=== PATIENT | male | born 1980 | race Caucasian/White ===

== ENCOUNTER 2017-05-17 07:15 | Day surgery (SDC) | payer OTHER ==
[~2017-05-17] VITALS: Ht 185.4 cm; Wt 83.9 kg
[2017-05-17] VITALS (14 sets, daily range): BP systolic 123–165; BP diastolic 74–96
--- NOTE | 2017-05-17 07:13 | Pre-Procedure Note/Attestation ---
Pre-Procedure Note/Attestation Complete Prior to Procedure Planned Procedure: left Procedure Narrative: knee arthroscopy, removal left knee hardware Indications for Procedure Pre-Operative Diagnosis: left knee pain hardware, left knee internal derangement Attestation I attest that I discussed the nature of the procedure; its benefits; risks and complications; and alternatives (and the risks and benefits of such alternatives ), prior to the procedure, with the patient (or the patient's legal fundraising sale representative). I attest that, if there was a reasonable possibility of needing a blood transfusion, the patient (or the patient's legal fundraising sale representative) was given the [facility] standardized written summary, pursuant to the [place] Blood Safety Act ([place] Health and Safety Code # 1645, as amended). I attest that I re-evaluated the patient just prior to the surgery and that there has been no change in the patient's H&P, except as documented below: JAIR CAZARES May 17, 2017 07:13
--- NOTE | 2017-05-17 07:14 | Operative Note - PDOC ---
Operative Note Operative Note Pre-op Diagnosis: left knee pain hardware, left knee internal derangement Procedure: left knee arthroscopy, removal hardware Post-op Diagnosis: same as pre-op plus Operative Findings: consistent w/pre-op dx studies Anesthesia: regional Specimen: none Complications: none Condition: stable Estimated Blood Loss: none Implant(s) used?: No JAIR CAZARES May 17, 2017 07:14
[~2017-05-17 07:15] MED LIST: Clindamycin 600mg 50 ML IV ONE; D5 1/2NS 1,000 ML IV SCH; HYDROmorphone 1mg/ml Carpuject SUBQ PRN; NKM; Norco 5mg/325mg tab ORAL PRN; Tylenol #3 tab (300mg/30mg) ORAL PRN; ceFAZolin 1gm in D5W 55ml IVP ONE; celeBREX 200mg Cap **SURGERY PATIENTS ONLY ORAL ONE; oxyCONTIN 20mg tab ORAL ONE
[2017-05-17] MEDS ORDERED: celeBREX 200mg Cap **SURGERY PATIENTS ONLY ORAL ONE (08:21)
[2017-05-17] MEDS ORDERED: Bupivacaine 0.25% Inj 30ml INJ ONE (09:30)
[2017-05-17] MEDS ORDERED: Morphine Sulfate PF 10 ML ONE (09:30)
[2017-05-17] MEDS ORDERED: Kenalog-40 1ml Vial ONE (09:30)
[2017-05-17] MEDS ORDERED: Ketorolac 30mg Inj ONE ×2 (09:30→10:00)
[2017-05-17] MEDS ORDERED: Lidocaine 1% 10mg/ml/Epi 0.005mg/ml 30ml vial INJ ONE (09:30)
[2017-05-17] MEDS ORDERED: Midazolam 2mg/2ml Inj ONE (10:00)
[2017-05-17] MEDS ORDERED: Sterile Water Irrig 1000ml IRRIG ONE (10:00)
[2017-05-17] MEDS ORDERED: fentaNYL 100 mcg/2 mL IV ONE (10:00)
[2017-05-17] MEDS ORDERED: NS Irrig 4000ml IRRIG ONE ×2 (10:00→10:30)
[2017-05-17] MEDS ORDERED: LR 1000ml ONE (10:00)
[2017-05-17] MEDS ORDERED: Propofol 200mg/20ml IV ONE (10:08)
[2017-05-17] MEDS ORDERED: Duramorph PF 10mg/10ml amp EPIDUR ONE (10:30)
[2017-05-17] MEDS ORDERED: LR 1000ml 1,000 ML IVLG SCH (10:57)
--- NOTE | 2017-05-17 10:57 | Anethesia Preoperative Eval ---
Anesthesia Pre-op PMH/ROS General Date of Evaluation: May 17, 2017 Time of Evaluation: 10:10 Anesthesiologist: Mary ASA Score: ASA 2 Mallampati Score Class I : Soft palate, uvula, fauces, pillars visible Class II: Soft palate, uvula, fauces visible Class III: Soft palate, base of uvula visible Class IV: Only hard plate visible Mallampati Classification: Class II Surgeon: George Diagnosis: L knee pain Surgical Procedure: L knee scope Anesthesia History: none Family History: no anesthesia problems Allergies: Coded Allergies: LEVOFLOXACIN (Verified Allergy, Intermediate, 05/16/17) Uncoded Allergies: LEVAQU (Allergy, Intermediate, 05/16/17) HIVES Past Medical History Cardiovascular: Denies: HTN, CAD, PA, valve dz, arrhythmia, other Pulmonary: Denies: asthma, COPD, ETHAN, other Gastrointestinal/Genitourinary: Reports: GERD - mild, Denies: CRI, ESRD, other Neurologic/Psychiatric: Denies: dementia, CVA, depression/anxiety, TIA, other Endocrine: Denies: DM, hypothyroidism, steroids, other HEENT: Denies: cataract (L), cataract (R), glaucoma, METLAKATLA (L), METLAKATLA (R), other Hematology/Immune: Denies: anemia, DVT, bleeding disorder, other Musculoskeletal/Integumentary: Denies: OA, RA, DJD, DDD, edema, other PMH Narrative: as above PSxH Narrative: Bilateral knee Sx Anesthesia Pre-op Phys. Exam Physician Exam Last Vital Signs Date Time Temp Pulse Resp B/P (MAP) Pulse Ox O2 Delivery O2 Flow Rate FiO2 05/17/17 08:01 97.8 55 20 144/80 98 Room Air Constitutional: NAD Neurologic: CN 2-12 intact Cardiovascular: RRR, no M/R/G Respiratory: CTA Gastrointestinal: S/NT/ND Airway Exam Mallampati Score: Class II MO: full Neck: Flexible ROM: full Teeth: intact Dentures: no upper, no lower Anesthesia Pre-op A/P Labs see chart Studies Pre-op Studies: EKG - NSR Risk Assessment & Plan Assessment: ASA 2 Plan: GA with LMA Status Change Before Surgery: No Pre-Antibiotics Drug: Ancef 2 gr. Given Within 1 Hr of Incision: Yes Time Given: 10:42 ARMAND CAPPS M.D. May 17, 2017 10:57
[2017-05-17] MEDS ORDERED: Metoclopramide 10mg/2ml Inj IVP PRN (11:00)
[2017-05-17] MEDS ORDERED: Ketorolac 30mg Inj IV PRN (11:00)
[2017-05-17] MEDS ORDERED: Meperidine 50mg/ml Inj(FOR RIGORS ONLY) IV PRN (11:00)
[2017-05-17] MEDS ORDERED: DiphenhydrAMINE 50mg/ml Inj IVP PRN (11:00)
[2017-05-17] MEDS: Hydromorphone 0.5mg/0.5ml inj IVP PRN ×2 (11:52→12:48)
--- NOTE | 2017-05-17 13:06 | Immediate Post-Op Evaluation ---
Immediate Post-Op Evalulation Immediate Post-Op Evalulation Procedure: L knee scope meniscectomy, hardwear removal Date of Evaluation: May 17, 2017 Time of Evaluation: 11:48 IV Fluids: 1000 Blood Products: none Estimated Blood Loss: min Urinary Output: none Blood Pressure Systolic: 128 Blood Pressure Diastolic: 76 Pulse Rate: 82 Respiratory Rate: 20 O2 Sat by Pulse Oximetry: 99 Temperature (Fahrenheit): 97.3 Pain Score (1-10): 2 Nausea: No Vomiting: No Complications none Patient Status: awake, patent, none Hydration Status: adequate ARMAND CAPPS M.D. May 17, 2017 13:05
--- NOTE | 2017-05-17 15:54 | 48 Hour Post Anesthesia Eval ---
Post Anesthesia Evaluation Procedure: L knee scope meniscectomy, hardwear removal Date of Evaluation: May 17, 2017 Time of Evaluation: 15:53 Blood Pressure Systolic: 142 0: 78 Pulse Rate: 68 Respiratory Rate: 20 Temperature (Fahrenheit): 97.6 O2 Sat by Pulse Oximetry: 98 Airway: patent Nausea: No Vomiting: No Pain Intensity: 2 Hydration Status: adequate Cardiopulmonary Status: stable Mental Status/LOC: patient returned to baseline Follow-up Care/Observations: n/a Post-Anesthesia Complications: none Follow-up care needed: ready to discharge ARMAND CAPPS M.D. May 17, 2017 15:54
--- NOTE | 2017-05-17 23:15 | Operative Note - Dictated ---
DATE OF OPERATION: 05/17/2017 PREOPERATIVE DIAGNOSES: 1. Status post open reduction and internal fixation left patellar fracture. 2. Left knee painful hardware. 3. Possible internal derangement of left knee. PROCEDURES: 1. Left knee diagnostic arthroscopy. 2. Left knee chondroplasty of patellofemoral compartment and medial compartment. 3. Synovectomy of medial and lateral patellofemoral compartment. 4. Removal of hardware, left knee. DISCUSSION: The patient is a pleasant gentleman, who underwent open reduction and internal fixation of left patellar fracture, but still had continued pain and elected to undergo removal of the hardware. At the time of surgery, a diagnostic arthroscopy was also noted to be performed to evaluate the internal structure of the knee. Risks, limitations, expectations, and complications of the procedure were discussed in detail. All questions addressed. DESCRIPTION OF PROCEDURE: An informed consent was obtained. The patient was brought to the operating room and placed supine under monitored anesthesia control. Left leg was prepped and draped in a sterile manner. Time-out was performed. Ancef was administered. Intraarticular injection containing 0.25% Marcaine with epinephrine was injected. The portal sites were injected with 1% lidocaine with epinephrine. Inferolateral stab incision was then made. The trocar was introduced with significant difficulties consistent with scar tissue. The patella fat pad area was noticeable. Once the camera was positioned in the patellofemoral compartment, there were areas of grade 3 chondral damage of the medial patellar facet as well as grade 1 changes in the trochlear groove. There was hypertrophic synovial tissue in the retropatellar space area and what appeared to be maybe a possible medial plica. Medial gutter was entered free from the meniscal chondral damage. Medial compartment was entered. Synovectomy of the medial and intercondylar notch was performed to better visualize the compartments. The meniscus was probed and noted to be intact. There was a layer of grade 3 chondral damage of the medial femoral condyle. Gentle chondroplasty was performed. The intercondylar notch was entered. ACL was probed and noted to be intact. The lateral compartment was entered and free of any meniscal or chondral damage. Camera was repositioned in the patellofemoral compartment. Chondroplasty of the patellofemoral component was performed. Camera was then repositioned in the anterior medial viewing portal and the chondroplasty of the patellofemoral compartment was completed through the lateral portal. At this point, the knee was drained. Portal sites were closed. At this point, down to healthy tissue. The medial border of the patella was identified and a medial border of the patella was peeled off the fine three screws. The three screws along with the washers were all removed. Once that was done, attention was turned to the complex closure with #1 Vicryl, 2-0 Vicryl, 3-0 Vicryl, and 3-0 Monocryl. A Dermabond dressing was applied. The patient was awoken and taken to recovery room with stable vital signs. ESTIMATED BLOOD LOSS: None. COMPLICATIONS: None. SPECIMENS: None. EXPLANTS: Three screws and three washers. Ayaan Vazquez M.D. DR: ILENE JOB#: [id number] CC:
== END 2017-05-17 14:40 | disposition home or self-care (01) ==
LOC: SUR 07:15
DX: S82.002G Unspecified fracture of left patella, subsequent encounter for closed fracture with delayed healing (principal); K21.9 Gastro-esophageal reflux disease without esophagitis; Z88.8 Allergy status to other drugs, medicaments and biological substances; X58.XXXA Exposure to other specified factors, initial encounter; Y93.9 Activity, unspecified; Y92.9 Unspecified place or not applicable; X58.XXXD Exposure to other specified factors, subsequent encounter
CPT/HCPCS: 20680; 29876; J0690; J1170; J1885; J2250; J2274; J2405; J2704; J3010; J3301; J3490; J7120; 94003; 94150